=== PATIENT | female | born 1990 | race Caucasian/White ===

== ENCOUNTER 2016-07-30 23:01 | Observation (INO) | payer OTHER ==
[2016-07-30 23:01] VITALS: BMI 20.2
[2016-07-31 01:00] VITALS: BP 114/64; PULSE 102; RESP 16; TEMP 100; O2SAT 100
[2016-07-31] MEDS ORDERED: Iohexol 240 (50 ml) PO ONE (02:13)
[2016-07-31] MEDS ORDERED: Sodium Chloride 0.9% 1,000 ML IV STA (02:14)
--- NOTE | 2016-07-31 02:15 | ED PDOC ---
HPI: Abdomen Time Seen by Provider: 07/31/16 01:35 Chief Complaint (Nursing): Abdominal Pain Chief Complaint (Provider): abdominal pain History Per: Patient History/Exam Limitations: no limitations Onset/Duration Of Symptoms: Days (1) Current Symptoms Are (Timing): Still Present Severity: Moderate Pain Scale Rating Of: 7 Location Of Pain/Discomfort: RLQ Quality Of Discomfort: Sharp Associated Symptoms: Loss Of Appetite Exacerbating Factors: Movement Alleviating Factors: None Additional Complaint(s): Patient is a 26 yo female with no PMHX, presents to ED for 1 day of abdominal pain with associated por appetite and subjective fever. She states that pain has localized to RLQ. She denies N/V/D, vag dc or urinary symptoms. Past Medical History Reviewed: Historical Data, Nursing Documentation, Vital Signs Vital Signs: Last Vital Signs Temp 100.0 F H 07/31/16 00:57 Pulse 102 H 07/31/16 00:57 Resp 16 07/31/16 00:57 BP 114/64 07/31/16 00:57 Pulse Ox 100 07/31/16 06:35 - Medical History PMH: No Chronic Diseases - Surgical History Surgical History: No Surg Hx - Family History Family History: States: No Known Family Hx - Living Arrangements Living Arrangements: With Family - Social History Alcohol: None Drugs: Denies - Immunization History Hx Tetanus Toxoid Vaccination: Yes Hx Influenza Vaccination: Yes Hx Pneumococcal Vaccination: Yes - Home Medications Home Medications: Ambulatory Orders Medication Instructions Recorded Diazepam [Valium] 2 mg PO TID #21 tab 09/19/15 Ibuprofen [Motrin] 600 mg PO TID #21 tab 09/19/15 Multivit/Folic Acid/I 1 tab PO DAILY #30 tab 01/07/16 [ Plus] Acetaminophen [Tylenol 325mg tab] 650 mg PO Q6 PRN #30 tab 02/10/16 Ciprofloxacin [Cipro] 500 mg PO Q12 #20 tab 07/31/16 traMADol [Ultram] 50 mg PO Q6 PRN #16 tab 07/31/16 - Allergies Allergies/Adverse Reactions: Allergies Allergy/AdvReac Type Severity Reaction Status Date / Time No Known Allergies Allergy Verified 09/19/15 20:28 Review of Systems ROS Statement: Except As Marked, All Systems Reviewed And Found Negative Constitutional: Positive for: Fever Gastrointestinal: Positive for: Abdominal Pain Physical Exam - Reviewed Nursing Documentation Reviewed: Yes Vital Signs Reviewed: Yes - Physical Exam Appears: Positive for: Well, Non-toxic Head Exam: Positive for: ATRAUMATIC, NORMOCEPHALIC Skin: Positive for: Normal Color, Warm, Dry Eye Exam: Positive for: Normal appearance, EOMI, PERRL ENT: Positive for: Normal ENT Inspection Cardiovascular/Chest: Positive for: Regular Rate, Rhythm Respiratory: Positive for: Normal Breath Sounds. Negative for: Crackles, Rales , Wheezing Gastrointestinal/Abdominal: Positive for: Bowel Sounds, Soft, Tenderness ((+) RLQ is tender) Back: Positive for: Normal Inspection. Negative for: L CVA Tenderness, R CVA Tenderness Extremity: Positive for: Normal ROM. Negative for: Tenderness, Pedal Edema Neurologic/Psych: Positive for: Alert, Oriented. Negative for: Motor/Sensory Deficits - Laboratory Results Result Diagrams: 07/31/16 03:15 07/31/16 03:15 - ECG O2 Sat by Pulse Oximetry: 100 Medical Decision Making Medical Decision Makin yo female with RLQ pain and poor appetite Labs, U/S Tv, and CT A/P ordered Trial of Toradol Labs reviewed show no clinically sig abnlties CT A/P findings c/w pyelonephritis IV rocephin ordered Pt offered admit, but feels improved and declines. DX Pyelonephritis Stable RX Allison, RYLEE PCP Disposition - Clinical Impression Clinical Impression: Pyelonephritis Counseled Patient/Family Regarding: Studies Performed, Diagnosis, Need For Followup, Rx Given - Disposition Disposition: Routine/Home Disposition Time: 06:00 Condition: IMPROVED
[2016-07-31] MEDS ORDERED: Iohexol 240 (50 ml) ONE (02:38)
[2016-07-31 02:55] LABS: RBC URINE 2 /hpf (0-3); URINE BACTERIA MANY (<OCC); URINE BILIRUBIN NEGATIVE (NEGATIVE); URINE BLOOD MODERATE (NEGATIVE); URINE COLOR YELLOW (YELLOW); URINE GLUCOSE (UA) NEG (Normal); URINE KETONE NEGATIVE (NEGATIVE); URINE LEUKOCYTE ESTERASE TRACE Leu/uL (Negative); URINE PROTEIN NEGATIVE (NEGATIVE); WBC URINE 4 /hpf (0-5)
[2016-07-31 03:21] LABS: BASO # 0.1 K/uL (0.0-0.2); BASO % 0.6 % (0.0-2.0); EOS # 0.1 K/uL (0.0-0.7); EOS % 0.5 % (0.0-4.0); LYMPH # 1.9 K/uL (1.0-4.3); LYMPH % 18.7 % (20.0-40.0); MEAN CELL VOLUME 87.6 fl (81.0-99.0); MEAN CORPUSCULAR HEMOGLOBIN 29.7 pg (27.0-31.0); MEAN CORPUSCULAR HGB CONC 33.9 g/dL (33.0-37.0); MEAN PLATELET VOLUME 8.3 fl (7.2-11.7); MONO # 1.3 K/uL (0.0-0.8); MONO % 12.2 % (0.0-10.0); NRBC % 0.1 % (0.0-0.0); RED CELL DISTRIBUTION WIDTH 13.4 % (11.5-14.5); WHITE BLOOD COUNT 10.3 K/uL (4.8-10.8)
--- NOTE | 2016-07-31 03:30 | US ---
EXAM: US Pelvis Complete, Transabdominal. US Pelvis, Transvaginal. CLINICAL HISTORY: 26 years old, female; Pain; Pelvic pain; Additional info: Possible torsion TECHNIQUE: Real-time transabdominal and transvaginal pelvic ultrasound (complete) with image documentation. Transvaginal imaging was used for better evaluation of the endometrium and adnexa. COMPARISON: No relevant prior studies available. FINDINGS: Uterus/cervix: Unremarkable. Normal endometrial stripe thickness. No myometrial mass. Right ovary: Unremarkable. No mass. Normal blood flow. Left ovary: Unremarkable. No mass. Normal blood flow. Free fluid: No free fluid. IMPRESSION: Normal pelvic ultrasound. EXAM: US Pelvis, Transvaginal. CLINICAL HISTORY: 26 years old, female; Pain; Pelvic pain; Additional info: Possible torsion TECHNIQUE: Real-time transvaginal pelvic ultrasound (complete) with image documentation. Transvaginal imaging was used for better evaluation of the endometrium and adnexa. EXAM DATE/TIME: 07/31/2016 2:14 AM COMPARISON: No relevant prior studies available. FINDINGS: The uterus is normal and measures 7.5 x 3 x 4 cm. The endometrium measures 3 mm. The right ovary is normal. The left ovary is normal. Color flow and doppler vascular waveforms were demonstrated to both ovaries. There is no significant free fluid. IMPRESSION: No acute findings.
[2016-07-31 03:31] LABS: ALKALINE PHOSPHATASE 65 U/L (38-126); ALT/SGPT 29 U/L (9-52); AST/SGOT 28 U/L (14-36); BILIRUBIN,TOTAL 1.8 mg/dl (0.2-1.3); BLOOD UREA NITROGEN 9 mg/dl (7-17); CALCIUM 9.6 mg/dL (8.4-10.2); CARBON DIOXIDE 25 mmol/L (22-30); CHLORIDE 98 mmol/L (98-107); GFR AFRICAN-AMERICAN > 60; GLUCOSE,RANDOM 100 mg/dL (65-105); LIPASE 74 U/L (23-300); POTASSIUM 3.9 MMOL/L (3.6-5.0); SODIUM 137 mmol/l (132-148); TOTAL PROTEIN 8.4 G/DL (6.3-8.2)
[2016-07-31 03:35] LABS: PARTIAL THROMBOPLASTIN TIME 27.8 SECONDS (23.3-32.5)
[2016-07-31] MEDS ORDERED: Sodium Chloride 0.9% 50 ML IV ONE (05:10)
[2016-07-31] MEDS ORDERED: Iohexol 300 100 ML IJ ONE (05:10)
--- NOTE | 2016-07-31 06:30 | CT ---
EXAM: CT Abdomen and Pelvis With Intravenous Contrast. CLINICAL HISTORY: 26 years old, female; Pain; Abdominal pain; Localized; Right lower quadrant (rlq); Additional info: Abd pain to rlq TECHNIQUE: Axial computed tomography images of the abdomen and pelvis with intravenous contrast. This CT exam was performed using one or more of the following dose reduction techniques: automated exposure control, adjustment of the mA and/or kV according to patient size, and/or use of iterative reconstruction technique. Coronal and sagittal reformatted images were created and reviewed. CONTRAST: 95 mL of [id number] administered intravenously. EXAM DATE/TIME: 07/31/2016 2:13 AM COMPARISON: No relevant prior studies available. FINDINGS: The liver is normal. The spleen is normal. The pancreas is normal. No gallstones. There is fullness of the right kidney with a small amount of right perinephric fluid. There are wedge shaped areas of low attenuation in the right kidney consistent with striated nephrograms. Mild fullness of the renal pelvis. There are no calculi identified however evaluation is limited by administration of contrast. Minimally prominent anterior wall of the urinary bladder. The right colon is distended with stool consistent with constipation. Probable identification of a normal appendix on images 33 and 34 coronal reconstructions. The uterus appears normal. IMPRESSION: Findings supportive of right pyelonephritis (distended right kidney with striated nephrograms and small amount of perinephric fluid). Severe right-sided constipation.
[2016-07-31] MEDS ORDERED: cefTRIAXone (Rocephin) 1 gm Inj ONE (06:34)
== END 2016-07-31 06:39 | disposition home or self-care (01) ==
LOC: H.ER 23:01 → H.EROBSV 07-31 00:05
PROVIDERS: ADMIT Emergency Medicine; ATTEND Emergency Medicine
DX: N12 Tubulo-interstitial nephritis, not specified as acute or chronic (principal)